=== PATIENT | female | born 1960 | race Caucasian/White ===

== ENCOUNTER → 2016-08-22 | Day surgery (SDC) | payer OTHER ==
[~2016-08-22] MED LIST: ACETAMINOPHEN 1000 MG/100 ML VIAL IV ONE; CALCTAB80 PO; ESTR1TAB12 PO; LACTATED RINGER'S 1000 ML INJ 1,000 ML ONE; LIDOCAINE 1.5%/EPINEPHrine 1:200,000 PF SOLN 30 ML AMP ONE; LORTA5 PO; MIDAZOLAM HCL 2 MG/2 ML VIAL ONE; MULT-65 PO; ONDANSETRON HCL 4 MG/2 ML VIAL IV PUSH ONE; PROPOFOL 500 MG/50 ML BTL IV ONE; SODIUM CHLOR 0.9% 250 ML INJ 250 ML IV ONE; SODIUM CHLORIDE 0.9% INJ 10 ML ONE; VANCOMYCIN HCL 1000 MG VIAL ONE; VITA500T83 PO; ZOFR8TAB4 PO; ceFAZolin INJ 1,000 MG VIAL ONE
--- NOTE | 2016-08-22 13:42 | MP ---
cc: JEANNETTE ELIZALDE M.D., JOHN A. MD DATE OF SURGERY: 08/22/2016 PROCEDURE Right breast biopsy with needle localization. PREOPERATIVE DIAGNOSIS Radial scar suspicious for possible neoplasia, right breast. POSTOPERATIVE DIAGNOSIS Radial scar suspicious for possible neoplasia, right breast. ANESTHESIA TIVA. SURGEON Hank ESTIMATED BLOOD LOSS 75 mL. FLUIDS 1050 mL crystalloid. COMPLICATIONS None. DRAINS None. SPECIMEN Needle-localized lumpectomy specimen to pathology. PROCEDURE IN DETAIL The patient was taken to the department of radiology where she underwent needle localization procedure. She was brought to the operating room and placed on the operating table in the supine position. A timeout was taken, confirming the correct patient, site and procedure to be performed. Skin and subcutaneous tissue was infiltrated with local anesthetic and a circumareolar incision made midway between the needle insertion site and the nipple-areolar complex in the upper outer quadrant of the right breast. Dissection was carried out superiorly to the needle which was cut at the skin and brought into the wound. A generous core of tissue was removed including the needle which was submitted for specimen radiograph. One of the two clips were found and at this point the remaining Ray-William and fluid that had been aspirated was sent and the second clip was found in the fluid. While awaiting radiologic confirmation of the second clip, the wound was made hemostatic with electrocautery and 3-0 Vicryl suture ligature. With absolute hemostasis assured and both clips retrieved, the wound was closed in two layers with interrupted 3-0 Vicryl suture and 5-0 PDS in a running subcuticular fashion. The wound was dressed with Steri-Strips. The patient was taken back to the recovery room in stable condition. Sponge, needle and instrument counts were reported to be correct. The patient tolerated the procedure well. MD BHAVYA Abraham/MANOLO /12:03 PM /1:41 PM
== END | disposition home or self-care (01) ==
LOC: ESDC 06:56
PROVIDERS: ATTEND Surgery Trauma Surgery
DX: L90.5 Scar conditions and fibrosis of skin (principal); N60.31 Fibrosclerosis of right breast
CPT/HCPCS: 00400; 19125; 88307; J0131; J0690; J2250; J2405; J3010; J3370; J7050; J7120